=== PATIENT | female | born 1980 | race Caucasian/White ===

== ENCOUNTER 2019-03-06 00:59 | Emergency (ER) | payer SELFPAY ==
[2019-03-06] MEDS ORDERED: oxyCODONE TAB* 5 MG TAB PO ONE (01:53)
[2019-03-06] MEDS ORDERED: Ibuprofen TAB* 600 MG PO ONE (02:13)
--- NOTE | 2019-03-06 02:22 | ED ---
Upper Extremity Pain - HPI Summary HPI Summary: Vision complains of left wrist pain and deformity after mechanical fall tonight with someone else then falling on top of her left wrist. Denies any other pain , injury or symptoms. - History of Current Complaint Chief Complaint: EDExtremityUpper Stated Complaint: WRIST INJURY PER PT Time Seen by Provider: 03/06/19 01:51 Hx Obtained From: Patient Hx Last Menstrual Period: 3 wks ago Mechanism Of Injury: Direct Blow Onset/Duration: Started Hours Ago Timing: Constant Severity Initially: Severe Severity Currently: Severe Pain Location: Wrist Character: Aching Aggravating Factor(s): Movement Alleviating Factor(s): Nothing Associated Signs & Symptoms: Positive: Negative - Allergies/Home Medications Allergies/Adverse Reactions: Allergies Allergy/AdvReac Type Severity Reaction Status Date / Time pineapple Allergy Severe swelling, Verified 03/07/19 15:37 tingling in mouth PMH/Surg Hx/FS Hx/Imm Hx Endocrine/Hematology History: Denies: Hx Diabetes Cardiovascular History: Denies: Hx Hypertension, Hx Pacemaker/ICD Respiratory History: Reports: Hx Pneumonia, Other Respiratory Problems/ Disorders - CHRONIC PNEUMONIA GI History: Reports: Hx Gall Bladder Disease - Cholecystectomy History: Denies: Hx Renal Disease Musculoskeletal History: Comment Only: Other Musculoskeletal History - Issues with coordination/ Seeing PCP for MS rule out currently Sensory History: Denies: Hx Hearing Aid Opthamlomology History: Denies: Hx Legally Blind EENT History: Denies: Hx Deafness Neurological History: Denies: Hx Dementia Psychiatric History: Denies: Hx Panic Disorder - Surgical History Surgery Procedure, Year, and Place: GALLBLADDER REMOVED 2005 Infectious Disease History: No Infectious Disease History: Denies: Hx Clostridium Difficile, Hx Hepatitis, Hx Human Immunodeficiency Virus (HIV), Hx of Known/Suspected MRSA, Hx Shingles, Hx Tuberculosis, Hx Known/ Suspected VRE, History Other Infectious Disease, Traveled Outside the [place] in Last 30 Days - Family History Known Family History: Positive: Hypertension, Other - NONCONTIBUTORY - Social History Alcohol Use: Daily Substance Use Type: Reports: None Smoking Status (MU): Light Every Day Tobacco Smoker Type: Cigarettes Amount Used/How Often: 1/2 ppd Have You Smoked in the Last Year: Yes Review of Systems Constitutional: Negative Eyes: Negative ENT: Negative Cardiovascular: Negative Respiratory: Negative Gastrointestinal: Negative Genitourinary: Negative Musculoskeletal: Negative Skin: Other Neurological: Negative Psychological: Normal All Other Systems Reviewed And Are Negative: Yes Physical Exam - Summary Physical Exam Summary: Negative snuffbox tenderness. Triage Information Reviewed: Yes Vital Signs On Initial Exam: Initial Vitals Temp Pulse Resp BP Pulse Ox 97.5 F 95 16 135/111 99 03/06/19 01:02 03/06/19 01:02 03/06/19 01:02 03/06/19 01:02 03/06/19 01:02 Vital Signs Reviewed: Yes Appearance: Positive: Well-Appearing Skin: Positive: Warm Head/Face: Positive: Normal Head/Face Inspection Eyes: Positive: Normal Neck: Positive: Supple Respiratory/Lung Sounds: Positive: Clear to Auscultation Cardiovascular: Positive: Normal Abdomen Description: Positive: Nontender Musculoskeletal: Positive: Normal Neurological: Positive: Normal Psychiatric: Positive: Normal AVPU Assessment: Alert - Darlyn Coma Scale Best Eye Response: 4 - Spontaneous Best Motor Response: 6 - Obeys Commands Best Verbal Response: 5 - Oriented Coma Scale Total: 15 Procedures - Sedation Patient Received Moderate/Deep Sedation with Procedure: No - Splinting 1 Location: wrist left Hand-Made Type: orthoglass Splint: sugar-tong Pre-Proc Neuro Vasc Exam: normal Post-Proc Neuro Vasc Exam: normal Diagnostics - Vital Signs Vital Signs Temp Pulse Resp BP Pulse Ox 03/06/19 01:02 97.5 F 95 16 135/111 99 - Laboratory Lab Statement: Any lab studies that have been ordered have been reviewed, and results considered in the medical decision making process. Course/Dx - Course Course Of Treatment: Vision complains of left wrist pain and deformity after mechanical fall tonight with someone else then falling on top of her left wrist. Denies any other pain, injury or symptoms. Vital signs within normal limits. X-ray of left wrist positive for fracture. Sugar tong splint applied by this provider. Follow-up with Ortho - Diagnoses Provider Diagnoses: Closed fracture of radial styloid Discharge ED - Sign-Out/Discharge Documenting (check all that apply): Patient Departure - Discharge Plan Condition: Stable Disposition: HOME Patient Education Materials: Wrist Fracture in Adults (ED) Referrals: Carmela Wiggins MD [Primary Care Provider] - Orion Rosenberg MD [Medical Doctor] - Additional Instructions: Alternate ibuprofen 600 mg with Tylenol 650 mg every 3 hours as needed for pain. Call orthopedics Dr. Rosenberg tomorrow morning to arrange follow-up appointment for further evaluation of wrist fracture. - Billing Disposition and Condition Condition: STABLE Disposition: Home
[2019-03-06 02:50] VITALS: BP 130/108
== END 2019-03-06 02:49 | disposition home or self-care (01) ==
LOC: ED 00:59
DX: S52.512A Displaced fracture of left radial styloid process, initial encounter for closed fracture (principal); W19.XXXA Unspecified fall, initial encounter; Y92.9 Unspecified place or not applicable; F17.210 Nicotine dependence, cigarettes, uncomplicated; Z90.49 Acquired absence of other specified parts of digestive tract
CPT/HCPCS: 99282; A9270-GY

== ENCOUNTER → 2019-03-11 12:36 | Day surgery (SDC) | payer OTHER ==
--- NOTE | 2019-03-07 14:09 | HP ---
PREOPERATIVE HISTORY AND PHYSICAL: DATE OF SURGERY/ADMISSION: 03/11/19 [facility] DATE OF OFFICE VISIT/ENCOUNTER: 03/06/19 ATTENDING SURGEON: Montse Vasquez MD * (DICTATED BY JACQUELIN NÚÑEZ) PROCEDURE: Open reduction and internal fixation, left wrist. 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 She landed on an outstretched left hand. She was seen at [facility] Emergency Room and had some x-rays taken, which showed a displaced distal radius fracture. Reduction was attempted, but there was little change in the position of the fracture fragment. She was placed in a sugar tong splint and referred to Dr. Vasquez for further evaluation and treatment considerations. After review of the patient and of the x-ray, Dr. Vasquez is recommending surgical intervention and the patient has consented to proceed. The patient has history of narcotic misuse and she prefers not to take narcotics. She also has a history of balance issues for which she was worked up by Dr. Trotter. No treatment or medications were prescribed, this was a couple of years ago. PAST MEDICAL HISTORY: 1. History of balance issues. 2. History of narcotic misuse. PAST SURGICAL HISTORY: Cholecystectomy. MEDICATIONS: None. ALLERGIES: No known drug allergies. FAMILY MEDICAL HISTORY: Diabetes, stroke, hypertension, pulmonary embolism. 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 She is a current smoker. She smokes half a packet per day and has done so for 20 years. She denies recreational drug use. She drinks alcohol on regular occasion usually 5 nights per week. REVIEW OF SYSTEMS: Negative for general, cephalic, cardiovascular, respiratory , GI, , other musculoskeletal, integumentary, endocrine, neurologic, and hematologic symptoms. Infectious Disease: Negative for MRSA, hepatitis C, HIV. PHYSICAL EXAMINATION GENERAL: Well-developed, well nourished 38-year female in no acute distress. VITAL SIGNS: Height 5 feet 9 inches, weight 210 pounds. Pulse rate 72, blood pressure 120/84. HEENT: Normocephalic, atraumatic. Pupils are equal, round and reactive to light and accommodation. Extraocular movements are intact. Throat is clear. NECK: Supple. No palpable lymph nodes. PULMONARY: Lungs are clear to auscultation bilaterally. No wheezes, rales, or rhonchi. CARDIOVASCULAR: Regular rate and rhythm. S1 and S2. No murmurs, rubs, or gallops. No edema. ABDOMEN: Positive bowel sounds. Soft and nontender. NEUROLOGICAL: Alert and oriented x3. Cranial nerves II through XII are intact. Sensation is intact to light touch. MUSCULOSKELETAL: On exam of her left upper extremity, she has swelling at the wrist and tenderness to palpation at the distal radius. Skin is intact. Neurovascular function is intact. There is no swelling in her fingers and she can move her fingers fairly well. IMAGING STUDIES: X-rays AP, lateral and oblique of the left distal radius show comminuted fracture that is intraarticular at the distal radioulnar joint, but appears extraarticular at the radiocarpal joint. IMPRESSION: Left distal radius fracture. PLAN: The patient is scheduled to undergo an open reduction and internal fixation of the left wrist with Dr. Vasquez on 03/11/19. She will return to the office 10 days postop for followup and suture removal. She will plan on using over-the- counter ibuprofen and/or Tylenol for postoperative pain management. JACQUELIN NÚÑEZ [id number]/[facility] #: [id number] MTDMarly
[~2019-03-11 12:36] MED LIST: Buffered Lidocaine 1% SYRIN* 1 ML/SYRINGE INTRADERM ONE; Bupivacaine 0.5% SDV PF* 30ML VIAL ONE; Dexamethasone IV* 4 MG/ML 1 ML (4 MG) IV SLOW PU ONE; Dexamethasone IV* 4 MG/ML 1 ML (4 MG) ONE; DiMENhydriNATE IV* 50 MG/ML VIAL IV PUSH PRN; HYDROcodone/ACETAMIN 5-325 MG* 1 TAB PO PRN; KETAMINE HCL* 50 MG/ML 10 ML VIAL ONE; Lactated Ringers 1000 ML Bag* 1,000 ML IV SCH; Lidocaine 2% PF * 5 ML VIAL ONE; Midazolam* 1 MG/ML 2 ML VIAL (2 MG) ONE; Midazolam* 1 MG/ML 5 ML VIAL (5 MG) ONE; Naloxone* 0.4 MG/ML 1 ML VIAL IV PRN; Ondansetron INJ* 2 MG/ML VIAL ONE; Propofol* 10 MG/ML 20 ML BTL ONE; ceFAZolin 2 GM PREMIX in ORs 2 GM/50 ML BAG ONE; fentaNYL* 50 MCG/ML 2 ML VIAL (100 MCG VIAL) IV PRN; fentaNYL* 50 MCG/ML 2 ML VIAL (100 MCG VIAL) ONE; fentaNYL* 50 MCG/ML 5 ML VIAL (250 MCG VIAL) ONE; oxyCODONE/Acetamin 5/325 MG* TAB ONE
[2019-03-11] MEDS: oxyCODONE/Acetamin 5/325 MG* TAB PO PRN ×2 (16:15→16:24)
[2019-03-11 17:07] VITALS: BP 131/79
--- NOTE | 2019-03-11 21:53 | OP ---
DATE OF OPERATION: 03/11/19 [facility] DATE OF : 82 SURGEON: Montse Vasquez MD [employer] OPERATIONS MANAGER: JACQUELIN Mari ANESTHESIA: General. PRE-OP DIAGNOSIS: Comminuted fracture of the left distal radius, which is displaced. POST-OP DIAGNOSIS: Comminuted fracture of the left distal radius, which is displaced. OPERATIVE PROCEDURE: Open reduction internal fixation of left distal radius. ESTIMATED BLOOD LOSS: Zero. TOURNIQUET TIME: About 30 minutes. INDICATIONS FOR PROCEDURE: Theresa is a 38-year-old female who fell and injured her left wrist. She has a comminuted extraarticular fracture of the distal radius. She presents for ORIF. DESCRIPTION OF PROCEDURE: The patient was brought to the operating room, was given a general anesthetic and placed on a supine position on the operating table with a tourniquet around her left upper arm. The skin of her left upper extremity was prepped and draped in the usual sterile fashion. The upper extremity was exsanguinated and the tourniquet elevated to 250 mmHg. A longitudinal incision was made overlying the flexor carpi radialis tendon. We dissected through the superficial and deep portion of the FCR tendon sheath and then the FPL muscle. The radial artery were retracted. The pronator quadratus was incised and subperiosteally dissected off of the distal radius. The fracture fragments were reduced and their position checked on the C-arm in the AP and lateral views and found to be satisfactory. A plate from the [employer] variable angle fit was secured with 4 distal and 3 proximal screws. The position of the hardware and fracture fragments were checked on the C-arm in the AP and lateral views and found to be essentially anatomic. The wound was copiously irrigated with saline. The pronator quadratus muscle was repaired over the plate and then the FCR tendon sheath was reapproximated with 2-0 Vicryl suture. The skin edges were reapproximated with 4-0 nylon suture. The wound was dressed with Xeroform, 4x4, Webril, and a volar splint. The patient tolerated the procedure well and was brought to the recovery room in good condition. [id number]/[facility] #: [id number] MTDD
== END | disposition home or self-care (01) ==
LOC: OREAST 12:36
PROVIDERS: ATTEND Orthopaedic Surgery
DX: S52.572A Other intraarticular fracture of lower end of left radius, initial encounter for closed fracture (principal); W19.XXXA Unspecified fall, initial encounter; Y92.511 Restaurant or cafe as the place of occurrence of the external cause; Y99.0 Civilian activity done for income or pay; F17.210 Nicotine dependence, cigarettes, uncomplicated
CPT/HCPCS: 76000; 81025; A9270-GY; C1713; C1776; J0690; J1100; J2250; J2405; J2704; J3010; J3490